=== PATIENT | female | born 1955 | race Caucasian/White ===

== ENCOUNTER → 2020-03-19 | Outpatient (CLI) | payer BC ==
[~2020-03-19] MED LIST: IOPAMIDOL 370 MG/ML 200 ML INFUS..BTL INJ ONE; METOPROLOL TARTRATE 25 MG TAB ONE; METOPROLOL TARTRATE INJ 1 MG/ML VIAL ONE; NITROGLYCERIN 0.4 MG SUBL ONE; SODIUM CHLORIDE 0.9% 100 ML ONE; Z TRIBENZOR PO; Z.0.OMEPRAZOLE20 MG PO
[2020-03-19 08:10] LABS: CREATININE, SERUM 0.95 mg/dL (0.57-1.11)
--- NOTE | 2020-03-19 12:58 | Diagnostic Imaging Report ---
EXAM: CALCIUM SCORE AND CORONARY CTA INDICATION: ^[id number] ^[id number] COMPARISON: None. TECHNIQUE: Multi-detector CT technology was employed (64 MDCT The X Train). Minimal slice thickness was performed following the intravenous administration of contrast material. The patient was premedicated with 25 mg by mouth and 5 mg i.v. metoprolol and 0.4 mg sublingual nitroglycerin for heart rate control and coronary dilation, respectively. IV CONTRAST: 100 mL of Isovue-370 ORAL CONTRAST: None COMPLICATIONS: None RADIATION DOSE: Total DLP: 1545 mGy*cm Estimated effective dose: (DLP x 0.015 x size factor) mSv CTDIvol has been reviewed. It is below the limits set by the Radiation Protocol Committee (RPC). For optimization of anatomic evaluation, multiplanar reconstruction, maximum intensity projections, and advanced 3-D off-line postprocessing were performed on a dedicated stand-alone workstation under the direct supervision of the interpreting physician. QUALITY: Mild motion artifact due to unexpected increasing heart rate despite beta ting medication at the time of the IV contrast administration. FINDINGS: CALCIUM SCORE: The observed Agatston Calcium Score of 35.1 is at percentile between 50 and 75% for subjects of the same age and gender who are free of clinical cardiovascular disease and treated diabetes. The Agatston score for each vessel is as follows: LM: 12.5 LAD: 22.6 LCx: 0 RCA: 0 DISTRIBUTION OF THE CALCIFIED PLAQUES: Mild scattered calcified plaques within the proximal LAD and LCx. CORONARY ANATOMY: There is normal origin of the coronary arteries. Left Main Coronary Artery: The left main is normal sized vessel that bifurcates into the LAD and circumflex. There is no evidence of atherosclerotic changes or stenotic disease. Left Anterior Descending Coronary Artery: The LAD is a normal size vessel that wraps around the apex. It gives rise to 2 acute diagonal branches. Minimal calcified plaque in the proximal segment resulting in minimal narrowing (1-24%). Otherwise, no atherosclerotic changes or stenotic disease in the remaining segments of the LAD. Left Circumflex Coronary Artery: The LCX is a normal size vessel, which is dominant. It gives rise to 1 obtuse marginal branches. In its distal segment it bifurcates into the PDA. Minimal calcified plaque in the proximal segment resulting in minimal narrowing (1-24%). Otherwise, no atherosclerotic changes or stenotic disease in the remaining segments of the LCx. Right Coronary Artery: The RCA is a small size vessel, which is non-dominant. It gives rise to a conus branch, AV jignesh branch, and 2 acute marginal branches. There is no evidence of atherosclerotic changes or stenotic disease. CARDIAC MORPHOLOGY AND FUNCTION: The right and left atria and ventricles are morphologically normal. There is normal resting global left ventricular systolic function. LVEF: 70%, LV end diastolic volume: 86.2 cc LV end systolic volume: 25.7 cc LV stroke volume: 60.5 cc LIMITED CHEST: Limited views of the visualized chest show no abnormality within chest wall and mediastinum. No mediastinal lymphadenopathy. The main pulmonary artery normal in caliber, measuring 2.6 cm in diameter. The visualized lungs are clear. The visualized portions of the ascending and descending thoracic aorta are of normal size. Mild atherosclerotic calcifications of the partially visualized thoracic aorta. Tiny hiatal hernia. LIMITED ABDOMEN: Limited images of the upper abdomen reveal no abnormalities of the visualized organs. BONES: Mild degenerative changes of the visualized thoracic spine. IMPRESSION: 1. Total Agatston Calcium Score: 35.1 that corresponds to percentile between 50 and 75%, representing mild plaque burden. 2. Normal coronary anatomy with left coronary dominant system (LCx). 3. Minimal calcified plaques in the proximal LAD and LCx resulting in minimal narrowing (1-24%). Otherwise, no evidence of atherosclerotic changes or stenotic disease in the remaining coronary arteries. CAD-PRICILA: 1 Reference: J Cardiovasc Comput Tomogr. Dec-Jan 2016;10(4):269-81. Signed by: Dr. Malika Dolan M.D. on 03/19/2020 12:55 PM
== END ==
LOC: CT 07:21
PROVIDERS: ATTEND Internal Medicine Cardiovascular Disease
DX: R07.9 Chest pain, unspecified (principal)
CPT/HCPCS: 36415; 75574; 82565; 84520; J7050; Q9967

== ENCOUNTER → 2020-04-11 | Day surgery (SDC) | payer BC, OTHER ==
[2020-04-08 11:01] LABS: BASOPHILS # (AUTO) 0.1 (0.0-0.1); EOSINOPHILS # (AUTO) 0.1 (0.0-0.4); EOSINOPHILS % 1.3 % (0.0-6.0); HEMATOCRIT 35.2 % (34.2-44.1); HEMOGLOBIN 11.9 g/dL (12.0-16.0); LYMPHOCYTES # (AUTO) 1.8 (1.0-3.2); LYMPHOCYTES % 34.8 % (18.0-39.1); MEAN CORPUSCULAR HEMOGLOBIN 30.5 pg (28-32); MEAN CORPUSCULAR HGB CONC 33.8 g/dL (31-35); MEAN CORPUSCULAR VOLUME 90.3 fL (81-99); MONOCYTES # (AUTO) 0.6 (0.2-0.8); MONOCYTES % 11.3 % (4.4-11.3); NEUTROPHILS # (AUTO) 2.7 (2.1-6.9); NEUTROPHILS % 51.2 % (38.7-80.0); PLATELET COUNT 249 x10e3/uL (140-360); RED CELL DISTRIBUTION WIDTH 12.7 % (11.7-14.4)
[2020-04-08 11:10] LABS: INR 0.95; PROTHROMBIN TIME 13.2 seconds (11.9-14.5)
[2020-04-08 11:18] LABS: ALBUMIN/GLOBULIN RATIO 1.4 (0.8-2.0); ANION GAP 12.8 mmol/L (8-16); CALCIUM 9.2 mg/dL (8.4-10.2); CREATININE, SERUM 1.02 mg/dL (0.57-1.11); POTASSIUM 3.8 mmol/L (3.5-5.1)
[~2020-04-11] VITALS: Ht 167.6 cm; Wt 104.3 kg
[2020-04-11] VITALS (11 sets, daily range): BP systolic 116–147; BP diastolic 66–99
[~2020-04-11] MED LIST changes: +FENTANYL CITRATE/PF 100MCG/2 ML INJ ONE; +HEPARIN SOD/SOD CHLORIDE 2,000 ML ONE; +LIDOCAINE HCL 2% LOCAL 20 ML VIAL ONE; -METOPROLOL TARTRATE 25 MG TAB ONE; -METOPROLOL TARTRATE INJ 1 MG/ML VIAL ONE; +MIDAZOLAM HCL 2 MG/2 ML VIAL ONE; -NITROGLYCERIN 0.4 MG SUBL ONE; +OLMESARTAN-HCT1 EAC2 PO; +OMEPRAZOLE40 MG PO; +PRAVACHOL20 MG PO; -SODIUM CHLORIDE 0.9% 100 ML ONE; +SODIUM CHLORIDE 0.9% 1000ML 1,000 ML ONE; +VERAPAMIL HCL 2.5 MG/ML 2 ML VIAL ONE; +XIIDRA1 EACH OP
== END | disposition home or self-care (01) ==
LOC: CATH LAB 07:55
PROVIDERS: ATTEND Internal Medicine Cardiovascular Disease
DX: I25.10 Atherosclerotic heart disease of native coronary artery without angina pectoris (principal); I10 Essential (primary) hypertension; E78.00 Pure hypercholesterolemia, unspecified; R00.2 Palpitations; R06.02 Shortness of breath; E78.5 Hyperlipidemia, unspecified; Z11.59 Encounter for screening for other viral diseases
CPT/HCPCS: 36415; 80053; 85025; 85610; 93458; C1887; J2001; J2250; J3010; J7030; Q9967; U0002; 99152

== ENCOUNTER → 2021-07-14 | Outpatient (CLI) | payer BC ==
[~2021-07-14] MED LIST changes: -FENTANYL CITRATE/PF 100MCG/2 ML INJ ONE; -HEPARIN SOD/SOD CHLORIDE 2,000 ML ONE; -IOPAMIDOL 370 MG/ML 200 ML INFUS..BTL INJ ONE; -LIDOCAINE HCL 2% LOCAL 20 ML VIAL ONE; -MIDAZOLAM HCL 2 MG/2 ML VIAL ONE; +OLMESARTAN-HCT1 EACH PO; -SODIUM CHLORIDE 0.9% 1000ML 1,000 ML ONE; -VERAPAMIL HCL 2.5 MG/ML 2 ML VIAL ONE
== END ==
LOC: CT 15:04
PROVIDERS: ATTEND Family Medicine
DX: M51.37 Other intervertebral disc degeneration, lumbosacral region (principal); R31.9 Hematuria, unspecified; K57.90 Diverticulosis of intestine, part unspecified, without perforation or abscess without bleeding; Z87.442 Personal history of urinary calculi
CPT/HCPCS: 74176

== ENCOUNTER → 2021-07-15 | Day surgery (SDC) | payer BC ==
[~2021-07-15] MED LIST changes: +FENTANYL CITRATE/PF 100MCG/2 ML INJ ONE; +HYOSCYAMINE SULFATE 0.5 MG/ML INJ ONE; +METOCLOPRAMIDE HCL 10 MG/2ML VIAL ONE; +MIDAZOLAM HCL 2 MG/2 ML VIAL ONE; +PROPOFOL IV EMULSION 10 MG/ML 20 ML VIAL ONE
[2021-07-15 15:45] VITALS: BP 111/56
== END | disposition home or self-care (01) ==
LOC: OR 12:15
PROVIDERS: ATTEND Internal Medicine Gastroenterology
DX: K29.70 Gastritis, unspecified, without bleeding (principal); Z86.010 Personal history of colon polyps; K31.7 Polyp of stomach and duodenum; K31.89 Other diseases of stomach and duodenum; K20.90 Esophagitis, unspecified without bleeding; K44.9 Diaphragmatic hernia without obstruction or gangrene; K21.9 Gastro-esophageal reflux disease without esophagitis; K57.30 Diverticulosis of large intestine without perforation or abscess without bleeding; K59.09 Other constipation; K64.8 Other hemorrhoids; I10 Essential (primary) hypertension; E78.5 Hyperlipidemia, unspecified; E11.9 Type 2 diabetes mellitus without complications; Z01.810 Encounter for preprocedural cardiovascular examination; Z01.812 Encounter for preprocedural laboratory examination; Z20.822 Contact with and (suspected) exposure to COVID-19; Z79.899 Other long term (current) drug therapy; Z68.31 Body mass index [BMI] 31.0-31.9, adult; Z90.49 Acquired absence of other specified parts of digestive tract; Z86.718 Personal history of other venous thrombosis and embolism
CPT/HCPCS: 43239; 45378; 93005; J1980; J2250; J2704; J2765; J3010; U0002

== ENCOUNTER → 2024-07-05 | Outpatient (REF) | payer MEDICARE ==
[~2024-07-05] MED LIST changes: -FENTANYL CITRATE/PF 100MCG/2 ML INJ ONE; -HYOSCYAMINE SULFATE 0.5 MG/ML INJ ONE; -METOCLOPRAMIDE HCL 10 MG/2ML VIAL ONE; -MIDAZOLAM HCL 2 MG/2 ML VIAL ONE; -PROPOFOL IV EMULSION 10 MG/ML 20 ML VIAL ONE
== END ==
LOC: RAD 11:44
PROVIDERS: ATTEND Family Medicine
DX: M25.511 Pain in right shoulder (principal)

== ENCOUNTER → 2025-04-09 | Outpatient (REF) | payer MEDICARE | LOC: RAD 07:42 | PROVIDERS: ATTEND Family Medicine | DX: Z01.818 Encounter for other preprocedural examination (principal) | CPT/HCPCS: 71046 ==